=== PATIENT | female | born 1955 | race Caucasian/White ===

== ENCOUNTER → 2017-09-30 | Outpatient (CLI) | payer BC ==
--- NOTE | 2017-10-03 14:04 | MM ---
Reason for exam: screening (asymptomatic). Last mammogram was performed 7 years and 1 month ago. History: Patient is postmenopausal. Family history of breast cancer in aunt and breast cancer in cousin. Took hormonal contraceptives for 7 years beginning at age 23. Physical Findings: A clinical breast exam by your physician is recommended on an annual basis and results should be correlated with mammographic findings. MG Screening Mammo w CAD Bilateral CC and MLO view(s) were taken. Prior study comparison: August 19, 2010, bilateral digital screening mammo w/CAD. Finding: There is a 14 mm circumscribed oval mass located 2-3 cm from the nipple in the anterior, central position of the left breast. New finding since August 19, 2010. ASSESSMENT: Incomplete: need additional imaging evaluation, BI-RAD 0 RECOMMENDATION: Ultrasound of the left breast. [facility] will attempt to contact patient to return for ultrasound.
== END | disposition home or self-care (01) ==
LOC: RADMAMWWP 12:41
PROVIDERS: ATTEND Family Medicine
DX: Z12.31 Encounter for screening mammogram for malignant neoplasm of breast (principal)
CPT/HCPCS: 77067

== ENCOUNTER → 2017-10-11 | Outpatient (CLI) | payer BC ==
--- NOTE | 2017-10-12 12:32 | USB ---
Reason for exam: additional evaluation requested from abnormal screening. History: Patient is postmenopausal. Family history of breast cancer in aunt and breast cancer in cousin. Took hormonal contraceptives for 7 years beginning at age 23. Physical Findings: Nurse did not find any significant physical abnormalities on exam. US Breast Workup Limited LT Left breast ultrasound demonstrates a 1.2 x 0.7 x 1.5cm oval, hypoechoic lesion at 12 o'clock. These results were verbally communicated with the patient and result sheet given to the patient on 10/11/17. ASSESSMENT: Suspicious, BI-RAD 4 RECOMMENDATION: Ultrasound core biopsy of the left breast. Called Dr. Martinez with mammographic findings and has scheduled an appointment for the patient for 11/03/17 at 10:[address] Denise. Biopsy scheduled for 10/25/17. PRELIMINARY REPORT CALLED AND FAXED TO DR. DENISE ON 10/12/17.
== END | disposition home or self-care (01) ==
LOC: RADUSWWP 15:50
PROVIDERS: ATTEND Family Medicine
DX: R92.8 Other abnormal and inconclusive findings on diagnostic imaging of breast (principal)

== ENCOUNTER → 2017-10-25 | Day surgery (SDC) | payer BC ==
[2017-10-25 08:37] VITALS: BP 125/82; PULSE 52; RESP 16; TEMP 98.2; BMI 32.4
--- NOTE | 2017-10-25 11:15 | USB ---
EXAMINATION TYPE: US biopsy breast VAD LT, Postbiopsy MG diagnostic mammo LT wo CAD DATE OF EXAM: 10/25/2017 CLINICAL HISTORY: 62-year-old female R92.8 Previous Abnormal Mammogram. Referred for ultrasound-guided core needle biopsy left breast mass. TECHNIQUE: Ultrasound guided core biopsy of left breast. COMPARISON: 09/30/2017 at 10/11/2017 FINDINGS: The procedure of ultrasound guided core biopsy was explained to the patient. Benefits, alternatives, and risks were discussed. An informed consent was then obtained. The patient was placed in supine positioning for imaging and for the procedure. The overlying skin was prepped and draped in usual sterile fashion. Lidocaine buffered with bicarbonate was used as anesthetic into the skin and subcutaneous tissue up to area of concern in the 12:00 zone A left breast. Under ultrasound guidance, a 13-gauge vacuum-assisted mammotome Elite biopsy gun was used to obtain 5 core samples. Following this, a coil clip was left in lesion. The patient tolerated the procedure well without any immediate complication. The patient was kept in the radiology department for short stay after the procedure and then discharged home in stable condition. Postbiopsy mammogram shows coil clip at the mammographic mass. IMPRESSION: Successful, uncomplicated ultrasound guided core biopsy of area of concern in the 12:00 left breast (a 1.8 cm fibroadenoma suspected), full pathology results to follow. Pathology Results: Benign LEFT BREAST, NEEDLE CORE BIOPSIES: FIBROADENOMA. Recommendation Follow up ultrasound of the left breast in 6 months. TO
== END ==
LOC: RADUSWWP 08:06
PROVIDERS: ATTEND Surgery
DX: D24.2 Benign neoplasm of left breast (principal)
CPT/HCPCS: 88305; 77065; 19083; A4648; J2001

== ENCOUNTER → 2018-05-09 | Outpatient (CLI) | payer BC ==
--- NOTE | 2018-05-09 11:37 | MM ---
Reason for exam: follow-up at short interval from prior study. Last mammogram was performed 6 months ago. History: Patient is postmenopausal. Family history of breast cancer in aunt and breast cancer in cousin. Benign US biopsy breast VAD LT of the left breast, October 25, 2017. Took hormonal contraceptives for 7 years beginning at age 23. Physical Findings: Nurse did not find any significant physical abnormalities on exam. MG Diagnostic Mammo LT w CAD CC, MLO, and ML view(s) were taken of the left breast. Prior study comparison: October 25, 2017, left breast MG diagnostic mammo LT wo CAD. September 30, 2017, bilateral MG screening mammo w CAD. There are scattered fibroglandular densities. There is a mammographically stable left mass at middle depth in the upper outer quadrant containing a biopsy marker. No new suspicious finding. These results were verbally communicated with the patient and result sheet given to the patient on 05/09/18. ASSESSMENT: Benign, BI-RAD 2 RECOMMENDATION: Return to routine screening mammogram schedule for both breasts. Back on schedule.
--- NOTE | 2018-05-09 11:38 | USB ---
Reason for exam: follow-up at short interval from prior study. History: Patient is postmenopausal. Family history of breast cancer in aunt and breast cancer in cousin. Benign US biopsy breast VAD LT of the left breast, October 25, 2017. Took hormonal contraceptives for 7 years beginning at age 23. US Breast LT Left complete breast ultrasound includes all four quadrants, the retroareolar region and axilla. Finding demonstrates a 1.1 x 0.6 x 1.0cm lesion at 12 o'clock similar to prior. Biopsy proven fibroadenoma. These results were verbally communicated with the patient and result sheet given to the patient on 05/09/18. ASSESSMENT: Benign, BI-RAD 2 RECOMMENDATION: Return to routine screening mammogram schedule for both breasts. Back on schedule.
== END | disposition home or self-care (01) ==
LOC: RADMAMWWP 09:01
PROVIDERS: ATTEND Surgery
DX: R92.8 Other abnormal and inconclusive findings on diagnostic imaging of breast (principal)
CPT/HCPCS: 77065

== ENCOUNTER → 2019-04-20 | Outpatient (CLI) | payer BC ==
--- NOTE | 2019-04-24 08:10 | MM ---
Reason for exam: screening (asymptomatic). Last mammogram was performed 11 months ago. History: Patient is postmenopausal. Family history of breast cancer in aunt and breast cancer in cousin. Benign US biopsy breast VAD LT of the left breast, October 25, 2017. Took hormonal contraceptives for 7 years beginning at age 23. Physical Findings: A clinical breast exam by your physician is recommended on an annual basis and results should be correlated with mammographic findings. MG Screening Mammo w CAD Bilateral CC and MLO view(s) were taken. Prior study comparison: May 09, 2018, left breast MG diagnostic mammo LT w CAD. October 25, 2017, left breast MG diagnostic mammo LT wo CAD. September 30, 2017, bilateral MG screening mammo w CAD. There are scattered fibroglandular densities. Previous mammotome biopsy in the left breast. There is chronic nodularity in the left breast. No significant changes when compared with prior studies. ASSESSMENT: Benign, BI-RAD 2 RECOMMENDATION: Routine screening mammogram of both breasts in 1 year.
== END | disposition home or self-care (01) ==
LOC: RADMAMWWP 13:44
PROVIDERS: ATTEND Family Medicine
DX: Z12.31 Encounter for screening mammogram for malignant neoplasm of breast (principal)
CPT/HCPCS: 77067

== ENCOUNTER → 2023-03-09 | Outpatient (CLI) | payer MEDICARE ==
--- NOTE | 2023-03-11 08:58 | MM ---
Reason for Exam: Screening (asymptomatic). Last mammogram was performed 3 year(s) and 10 month(s) ago. Patient History: Menarche at age 14. First Full-Term at age 30. Postmenopausal. Hormonal Contraceptives for 7 years from age 23 until age 30. 10/25/2017, Benign Core Biopsy on the left side. Maternal cousin had breast cancer. Maternal aunt had breast cancer. Risk Values: Tiffany 5 year model risk: 2.2%. NCI Lifetime model risk: 8.2%. Prior Study Comparison: 10/25/2017 Left Diagnostic Mammogram, [facility]. 05/09/2018 Left Diagnostic Mammogram, [facility]. 04/20/2019 Bilateral Screening Mammogram, [facility]. Tissue Density: The breast tissue is heterogeneously dense. This may lower the sensitivity of mammography. Findings: Analyzed By CAD. There is no suspicious group of microcalcifications or new suspicious mass in either breast. Overall Assessment: Benign, BI-RAD 2 Management: Screening Mammogram of both breasts in 1 year. . Patient should continue monthly self-breast exams. A clinical breast exam by your physician is recommended on an annual basis. This exam should not preclude additional follow-up of suspicious palpable abnormalities. Note on Tiffany scores and lifetime risk: 1. A Tiffany score greater than 3% is considered moderate risk. If this is the case, consider specialist referral to assess eligibility for a risk reducing agent. 2. If overall lifetime risk for the development of breast cancer is 20% or higher, the patient may qualify for future screening with alternating mammogram and breast MRI. Electronically signed and approved by: Abdelrahman Cagle M.D. [facility]
== END | disposition home or self-care (01) ==
LOC: RADMAMWWP 08:57
PROVIDERS: ATTEND Family Medicine
DX: Z12.31 Encounter for screening mammogram for malignant neoplasm of breast (principal); Z78.0 Asymptomatic menopausal state; Z80.3 Family history of malignant neoplasm of breast
CPT/HCPCS: 77063; 77067